=== PATIENT | female | born 1960 | race Caucasian/White ===

== ENCOUNTER 2017-08-14 16:53 | Emergency (ER) | payer MEDICAID ==
--- NOTE | 2017-08-14 17:54 | Emergency Department Record ---
History of Present Illness - General Chief complaint: Eye Problem Stated complaint: CHEMICAL IN LT EYE Time Seen by Provider: 08/14/17 17:48 Source: Patient, RN notes reviewed Mode of Arrival: Ambulatory - History of Present Illness Initial comments: visual acuity 20/20 both eyes and she got TSP/90 phospate free powder in her left eye at the hardware store and she rinsed her eye out with water at the hardware store. Called poison control and ph is 12.5 and treatment irrigation to neutral PH and follow up with ophthalmology. This happened 10 minutes prior to arrival. MD chief complaint: Eye pain, Eye redness Onset/Timin -: Hour(s) Onset Description: Sudden Location: Left eye Place: Other If Injury: Chemical exposure Eye Symptoms: Burning, Pain, Redness Severity: Mild Severity scale (1-10): 3 If Pain, Quality: Other Consistency: Constant Associated Symptoms: None Treatments Prior to Arrival: Irrigated eye - Related Data Home Medications Medication Instructions Recorded Confirmed Last Taken Aspirin [Aspirin EC] 81 mg PO DAILY 08/14/17 08/14/17 Unknown Levothyroxine Sodium [Synthroid] 75 mcg PO DAILY 08/14/17 08/14/17 Unknown Previous Rx's Medication Instructions Recorded Hydrocodone/Acetaminophen [[place] 1 each PO Q6HR #10 tablet 08/14/17 5-325 Tablet] Allergies Allergy/AdvReac Type Severity Reaction Status Date / Time Sulfa (Sulfonamide Allergy HIVES Verified 08/14/17 17:08 Antibiotics) Travel Screening - Travel/Exposure Within Last 30 Days Have you traveled within the last 30 days?: No Review of Systems Reviewed: No additional complaints except as noted below Constitutional: Reports: As per HPI. Denies: Chills, Fever, Malaise, Night sweats, Weakness, Weight change Eyes: Reports: As per HPI, Eye pain, Other (burning). Denies: Eye discharge, Photophobia, Vision change ENT: Reports: As per HPI. Denies: Congestion, Dental pain, Ear pain, Epistaxis , Hearing loss, Throat pain Respiratory: Reports: As per HPI. Denies: Cough, Dyspnea, Hemoptysis, Stridor, Wheezes Cardiovascular: Reports: As per HPI. Denies: Arrhythmia, Chest pain, Dyspnea on exertion, Edema, Murmurs, Orthopnea, Palpitations, Paroxysmal nocturnal dyspnea, Rheumatic Fever, Syncope Endocrine: Reports: As per HPI. Denies: Fatigue, Heat or cold intolerance, Polydipsia, Polyuria Gastrointestinal: Reports: As per HPI. Denies: Abdominal pain, Constipation, Diarrhea, Hematemesis, Hematochezia, Melena, Nausea, Vomiting Genitourinary: Reports: As per HPI. Denies: Abnormal menses, Discharge, Dyspareunia, Dysuria, Frequency, Hematuria, Incontinence, Retention, Urgency Musculoskeletal: Reports: As per HPI. Denies: Arthralgia, Back pain, Gout, Joint swelling, Myalgia, Neck pain Skin: Reports: As per HPI. Denies: Bruising, Change in color, Change in hair/ nails, Lesions, Pruritus, Rash Neurological: Reports: As per HPI. Denies: Abnormal gait, Confusion, Headache, Numbness, Paresthesias, Seizure, Tingling, Tremors, Vertigo, Weakness Psychiatric: Reports: As per HPI. Denies: Anxiety, Auditory hallucinations, Depression, Homicidal thoughts, Suicidal thoughts, Visual hallucinations Hematological/Lymphatic: Reports: As per HPI. Denies: Anemia, Blood Clots, Easy bleeding, Easy bruising, Swollen glands Past Medical History - SOCIAL HISTORY Smoking Status: Never smoker Alcohol Use: None Drug Use: None - RESPIRATORY Hx Respiratory Disorders: No - CARDIOVASCULAR Hx Cardio Disorders: No - NEURO Hx Neuro Disorders: No - GI Hx GI Disorders: No - Hx Genitourinary Disorders: No - ENDOCRINE Hx Endocrine Disorders: Yes Hx Thyroid Disease: Yes (hypo) - MUSCULOSKELETAL Hx Musculoskeletal Disorders: No - PSYCH Hx Psych Problems: No - HEMATOLOGY/ONCOLOGY Hx Hematology/Oncology Disorders: No Family Medical History Any Significant Family History?: No Physical Exam - General General Appearance: Alert, Oriented x3, Cooperative, Mild distress - Head Head exam: Normal inspection - Eye Eye exam: Normal appearance, PERRL, Conjunctival injection, EOMI, Other ( fluroscein slight up take at 7 pm left eye slightly on conrea and mostly on conjunctivea) Pupils: Normal accommodation Visual acuity (L) = 20/: 20 Visual acuity (R) = 20/: 20 With correction: No - ENT ENT exam: Normal exam, Mucous membranes moist, Normal external ear exam, Normal orophraynx, TM's normal bilaterally Ear exam: Normal external inspection. negative: External canal tenderness Nasal Exam: Normal inspection. negative: Discharge, Sinus tenderness Mouth exam: Normal external inspection, Tongue normal Teeth exam: Normal inspection. negative: Dental caries Throat exam: Normal inspection. negative: Tonsillar erythema, Tonsillar exudate - Neck Neck exam: Normal inspection, Full ROM. negative: Tenderness - Respiratory Respiratory exam: Normal lung sounds bilaterally. negative: Respiratory distress - Cardiovascular Cardiovascular Exam: Regular rate, Normal rhythm, Normal heart sounds - GI/Abdominal GI/Abdominal exam: Soft, Normal bowel sounds. negative: Tenderness - Rectal Rectal exam: Deferred - exam: Deferred - Extremities Extremities exam: Normal inspection, Full ROM, Normal capillary refill. negative: Tenderness - Back Back exam: Reports: Normal inspection, Full ROM. Denies: Muscle spasm, Rash noted, Tenderness - Neurological Neurological exam: Alert, Normal gait, Oriented X3, Reflexes normal - Psychiatric Psychiatric exam: Normal affect, Normal mood - Skin Skin exam: Dry, Intact, Normal color, Warm Course Vital Signs 08/14/17 16:58 Pulse Rate 66 Respiratory 18 Rate Blood Pressure 150/84 Pulse Ox 100 - Reevaluation(s) Reevaluation #1: 08/14/17 17:55 slit lamp exam slight irritation of cornea and conjunctivea at the 7 O'Clock position,central vision good 08/14/17 18:08 Reevaluation #2: irrigated with a nick lense 3 liters to neutral PH 08/14/17 18:09 Disposition Clinical Impression: Corneal chemical burn Qualifiers: Encounter type: initial encounter Laterality: left Qualified Code(s): T26.62XA - Corrosion of cornea and conjunctival sac, left eye, initial encounter Burn of conjunctival sac Qualifiers: Encounter type: initial encounter Laterality: left Qualified Code(s): T26.12XA - Burn of cornea and conjunctival sac, left eye, initial encounter Disposition: Home, Self-Care Condition: (1) Good Instructions: Corneal Abrasion (ED) Additional Instructions: follow up with Dr. Madrigal tomorrow at [facility] specialty clinic. tylenol for mild pain norco 5 mg for severe pain Prescriptions: Hydrocodone/Acetaminophen [[place] 5-325 Tablet] 1 each PO Q6HR #10 tablet Forms: Patient Portal Access Time of Disposition: 18:14 Quality - Quality Measures Quality Measures: N/A - Blood Pressure Screening Does Patient Have Any of the Following: No Blood Pressure Classification: Pre-Hypertensive BP Reading Systolic Measurement: 150 Diastolic Measurement: 84 Screening for High Blood Pressure: < Pre-Hypertensive BP, F/U Documented > [ [id number]] Pre-Hypertensive Follow-up Interventions: Referral to alternative/primary care provider.
[2017-08-14] MEDS ORDERED: PROPARACAINE HCL OPTH 15ML BTL OPTH ONE (18:15)
[2017-08-14] MEDS ORDERED: 0.9 % SODIUM CHLORIDE 1000ML 3,000 ML IV ONE (18:16)
== END 2017-08-14 18:40 | disposition home or self-care (01) ==
LOC: ER 16:53
DX: T65.891A Toxic effect of other specified substances, accidental (unintentional), initial encounter (principal); T26.62XA Corrosion of cornea and conjunctival sac, left eye, initial encounter; Y92.512 Supermarket, store or market as the place of occurrence of the external cause
CPT/HCPCS: 99284; J7030